=== PATIENT | male | born 1945 | race Hispanic/Latino ===

== ENCOUNTER 2017-09-15 06:48 | Day surgery (SDC) | payer MEDICARE, OTHER ==
[2017-09-15 07:36] LABS: Basophils % (Auto) 0.6 % (0.0-1.8); Eosinophils # (Auto) 0.1 K/mm3 (0.0-0.4); Eosinophils % (Auto) 1.1 % (0.0-4.3); Hematocrit 39.3 % (35.5-45.6); Hemoglobin 12.9 gm/dl (11.8-15.2); Lymphocytes # (Auto) 1.3 K/mm3 (1.2-5.4); Lymphocytes % (Auto) 17.5 % (13.4-35.0); Mean Corpuscular HGB Conc 33 % (32-34); Mean Corpuscular Hemoglobin 28 pg (28-32); Mean Corpuscular Volume 83 fl (84-94); Monocytes # (Auto) 0.6 K/mm3 (0.0-0.8); Monocytes % (Auto) 8.5 % (0.0-7.3); Platelet Count 153 K/mm3 (140-440); Red Blood Count 4.71 M/mm3 (3.65-5.03)
[2017-09-15 07:57] LABS: INR 0.81 (0.87-1.13)
[2017-09-15] MEDS ORDERED: NACL 0.9% 500 ML 500 ML IV SCH (08:00)
[2017-09-15 08:20] LABS: BUN/Creatinine Ratio 13; Blood Urea Nitrogen 12 mg/dL (9-20); Calcium 9.4 mg/dL (8.4-10.2); Hemolysis Index 7
[2017-09-15] MEDS ORDERED: CALAN ONE (08:25)
[2017-09-15] MEDS ORDERED: XYLOCAINE 2% INFILTRATI ONE (08:25)
[2017-09-15] MEDS ORDERED: HEPARIN/NS 5000 UNIT/500ML(CATH LAB) 1,000 ML IR ONE (08:25)
[2017-09-15] MEDS ORDERED: HEPARIN 10,000 UNITS/10 ML ONE (08:25)
[2017-09-15] MEDS ORDERED: NITROGLYCERIN SYRINGE 0 ML ONE (08:26)
[2017-09-15] MEDS ORDERED: VERSED ONE (08:27)
[2017-09-15] MEDS ORDERED: SUBLIMAZE ONE (08:27)
--- NOTE | 2017-09-15 09:53 | Cardiac Catherization Report ---
CARDIAC CATHETERIZATION REFERRING PHYSICIAN: Shivam Chambers MD INDICATION FOR PROCEDURE: The patient is a very pleasant 72-year-old gentleman referred here due to shortness of breath, intermittent chest pain, and abnormal stress test with LAD ischemia, referred for left heart catheterization. Risks, benefits, and potential alternatives explained prior to obtaining informed consent. PROCEDURE IN DETAIL: The patient was brought to catheterization lab in a postabsorptive state, prepped and draped in sterile fashion. An 8 mL of 2% lidocaine was used to anesthetize the right groin. A standard 6-German sheath was used to cannulate the right common femoral artery via modified Seldinger technique. All exchanges performed to exchange a J-tip guidewire. JL3.5 catheter used to engage the left main. No dampening or ventricularization. Cineangiography performed in all projections. JR4 catheter was used to cross the aortic valve under fluoroscopic guidance. Left ventriculography was performed in 30 CHEN and 30 CARRI projections via hand injections, catheter flushed. Manual pullback performed with continuous pressure monitoring. Catheter used to engage the right coronary. No dampening or ventricularization. Cineangiography performed in all projections. Next, catheter used to engage the SVG to OM. Next, catheter used to engage the left subclavian and advanced carefully over wire. CARRANZA angiography performed. Next, carefully removed from the left subclavian over wire and from the body over a wire, sheath removed. Manual pressure used to achieve hemostasis. No complications. Moderate sedation was initiated at 9:02 a.m. to 9:30 a.m. DATA: Aortic pressure is 130/50, LV pressure is 130, LVEDP of 18 mmHg. Left ventriculography revealed normal systolic performance with estimated ejection fraction 50-55%. No evidence of aortic stenosis. CORONARY ANATOMY: This is a left dominant system. Left main is small without significant disease, bifurcates in left anterior descending and left circumflex. LAD is diffusely diseased, occluded in the mid segment. Competitive flow from CARRANZA is noted. Circumflex is occluded in the mid segment. Right coronary is small and nondominant. SVG to OM branch is widely patent with back flow throughout the entire left PDA. The CARRANZA to LAD is widely patent. There is diffuse small vessel disease in the distal LAD. CONCLUSIONS: 1. Severe [place] coronary artery disease with 100% mid LAD and 100% mid circumflex stenoses. This is a left dominant system, small nondominant right coronary, patent CARRANZA to LAD with mild diffuse small vessel disease distally. 2. Patent SVG to OM trunk with a mild small vessel disease distally. 3. Preserved left ventricular systolic performance with near normal LVEDP. 4. No evidence of aortic stenosis. At this point, recommend aggressive medical management, would consider initiation of Ranexa therapy. Continue atenolol, Imdur. Consider adding Ranexa. Stable cardiac status. Standard groin care. Follow up with Dr. Megan Chambers in the office. Results of the procedure were explained at length to the patient and family. All questions and concerns were addressed. JOB# [id number] CHRISTELLE/AZUL
--- NOTE | 2017-09-15 09:57 | Short Stay Summary ---
Short Stay Documentation Date of service: 09/15/17 - History H&P: obtained from office - Allergies and Medications Current Medications: Allergies amoxicillin [Amoxicillin] Allergy (Verified 09/15/17 07:28) Rash ampicillin Allergy (Verified 09/15/17 07:28) Rash apalcillin [Apalcillin] Allergy (Verified 09/15/17 07:28) Rash ranitidine HCl [From Zantac] Allergy (Verified 09/15/17 07:28) Rash Home Medications Medication Instructions Recorded Confirmed Last Taken Type Aspirin [Baby Aspirin] 81 mg PO QDAY 05/01/13 09/15/17 09/15/17 History Furosemide [Furosemide ORAL LIQ] 80 mg PO QDAY 05/01/13 09/15/17 09/14/17 History Insulin Glargine,Hum.rec.anlog 90 unit SQ QHS 05/01/13 09/15/17 09/14/17 History [Lantus Solostar] Insulin NPH, Human [NovoLIN N] 75 unit SQ BID 05/01/13 09/15/17 09/14/17 History Isosorbide Mononitrate [Isosorbide 60 mg PO QDAY 05/01/13 09/15/17 09/15/17 History Mononitrate ER] Pantoprazole [Protonix] 20 mg PO QDAY 05/01/13 09/15/17 09/14/17 History Gabapentin [Neurontin] 300 mg PO TID 09/15/17 09/15/17 09/14/17 History HYDROcodone/APAP 10-325 [[place] 1 each PO Q6HR PRN 09/15/17 09/15/17 09/14/17 History 10/325] Zolpidem [Ambien] 10 mg PO DAILY 09/15/17 09/15/17 09/14/17 History amLODIPine [Norvasc] 5 mg PO DAILY 09/15/17 09/15/17 09/15/17 History Active Medications Sodium Chloride (Nacl 0.9% 500 Ml) 500 mls @ 50 mls/hr IV DIRECT DOREEN Stop: 09/15/17 17:59 Short Stay Discharge Plan Follow up with: PJ BILLINGSLEY PA [Primary Care Provider] - 7 Days
[2017-09-15] MEDS ORDERED: NORCO 5/325 ONE (10:38)
[2017-09-15] MEDS ORDERED: NORCO 5/325 PO ONE (12:00)
[2017-09-15 13:20] VITALS: BP 120/51
== END 2017-09-15 14:15 | disposition home or self-care (01) ==
LOC: CATHLABREC 06:48
PROVIDERS: ATTEND Internal Medicine
DX: I25.10 Atherosclerotic heart disease of native coronary artery without angina pectoris (principal); I11.0 Hypertensive heart disease with heart failure; I50.32 Chronic diastolic (congestive) heart failure; E11.9 Type 2 diabetes mellitus without complications; G47.30 Sleep apnea, unspecified; Z99.89 Dependence on other enabling machines and devices; Z90.49 Acquired absence of other specified parts of digestive tract; Z79.899 Other long term (current) drug therapy; Z95.1 Presence of aortocoronary bypass graft; Z79.82 Long term (current) use of aspirin; Z88.1 Allergy status to other antibiotic agents; Z88.8 Allergy status to other drugs, medicaments and biological substances; Z79.4 Long term (current) use of insulin
CPT/HCPCS: 36415; 80048; 85025; 85610; 85730; 93005; 93010; 93458; 99156; J1644; J2250; J3010; J7040; Q9967